=== PATIENT | female | born 1935 | race Caucasian/White ===

== ENCOUNTER 2024-02-10 12:48 | Outpatient (CLI) | payer MEDICARE, SELFPAY | END 2024-02-10 12:49 | disposition home or self-care (01) | LOC: INJ CL 12:49 | PROVIDERS: Visit Provider Family Medicine | DX: M54.16 Radiculopathy, lumbar region (principal); M51.369 Other intervertebral disc degeneration, lumbar region without mention of lumbar back pain or lower extremity pain | CPT/HCPCS: 64483; J1100; Q9966 ==

== ENCOUNTER 2024-10-19 10:25 | Outpatient (CLI) | payer MEDICARE, SELFPAY | END 2024-10-19 10:26 | disposition home or self-care (01) | LOC: INJ CL 10:26 | PROVIDERS: PCP Internal Medicine; Visit Provider Family Medicine | DX: M54.16 Radiculopathy, lumbar region (principal) | CPT/HCPCS: 64483; J1100; Q9966 ==